=== PATIENT | male | born 1965 | race Caucasian/White ===

== ENCOUNTER → 2024-02-13 | Day surgery (SDC) | payer BC ==
[2024-02-12 09:05] VITALS: BMI 33.0
[~2024-02-13] MED LIST: Dexamethasone 4 mg/ml Vial ONE; Glycopyrrolate 0.2 MG/ML 5 ML SYRINGE ONE; Heparin 10,000 UNITS/ 10 ML VIAL ONE; Heparin 25,000 units/D5W 500 ML ONE; Lidocaine 1% PF 5 ML VIAL ONE; Ondansetron PF 4 MG/2 ML Vial ONE; PROPOFOL 20 ML ONE; Protamine Sulfate 50 MG/5 ML VIAL ONE; Rocuronium Bromide 10 MG/ML (10ML VIAL) ONE; SUGAMMADEX SODIUM 200 MG/2 ML VIAL ONE; fentaNYL 50 mcg/mL 1 mL Vial ONE; hydrALAZINE 20 MG/ML VIAL ONE
== END ==
LOC: SDC 09:18
PROVIDERS: ATTEND Internal Medicine Cardiovascular Disease
PROC: 02583ZZ Destruction of Conduction Mechanism, Percutaneous Approach (ICD-10-PCS; principal; 2024-02-13)
DX: I48.0 Paroxysmal atrial fibrillation (principal); I42.8 Other cardiomyopathies; I11.0 Hypertensive heart disease with heart failure; I50.22 Chronic systolic (congestive) heart failure; Z98.52 Vasectomy status; Z79.82 Long term (current) use of aspirin; Z79.01 Long term (current) use of anticoagulants; Z79.899 Other long term (current) drug therapy
CPT/HCPCS: 85347; 93005; 93010; 93656; 93657; C1732; C1733; C1759; C1760; C1766; C1769; C1893; C1894; J0360; J1100; J1644; J2405; J2704; J2720; J3010